=== PATIENT | male | born 1940 | race Caucasian/White ===

== ENCOUNTER 2016-11-08 10:05 | Day surgery (SDC) | payer BC ==
[~2016-11-08 10:05] MED LIST: ACETAMINOPHEN 1000MG/100 ML PREMIX IV ONE
[2016-11-08 10:36] LABS: BASO % 0.4 % (0-6); EOS % 1.3 % (0-6); GRAN % 60.2 % (47-80); HEMOGLOBIN 13.2 gm/dl (14.0-18.0); LYMPH % 28.5 % (16-45); MEAN CELL VOLUME 97.6 fl (81-97); MEAN PLATELET VOLUME 9.4 fl (7.4-10.4); MONO % 9.6 % (0-9); PLATELET COUNT 251 K/uL (130-400); RED CELL DISTRIBUTION WIDTH 12.2 % (11.5-14.5); WHITE BLOOD COUNT W/O DIFF 5.2 K/uL (4.2-12.2)
[2016-11-08 10:39] LABS: MEAN CORPUSCULAR HEMOGLOBIN 32.1 pg (27-33)
[2016-11-08] MEDS ORDERED: EPINEPHRINE 1 MG/ML AMPUL SQ ONE (14:00)
[2016-11-08] MEDS ORDERED: EPHEDRINE SULFATE 50 MG/ML ML IV ONE (14:57)
[2016-11-08] MEDS ORDERED: LIDOCAINE 2% MDV (20MG/ML) 20ML VIAL IV ONE (14:57)
[2016-11-08] MEDS ORDERED: PROPOFOL 10 MG/ML VIAL IV ONE (14:57)
[2016-11-08] MEDS ORDERED: ROPIVACAINE HCL (NAROPIN) /PF 5MG/ML 20ML VIAL IV ONE (14:57)
[2016-11-08] MEDS ORDERED: SEVOFLURANE 250 ML INH ONE (14:57)
[2016-11-08] MEDS ORDERED: GLYCOPYRROLATE 0.2 MG/ML ML IV ONE (14:57)
[2016-11-08] MEDS ORDERED: FENTANYL PF 100MCG/2ML VIAL IV ONE (14:57)
[2016-11-08] MEDS ORDERED: MIDAZOLAM HCL 2MG/2ML VIAL IV ONE (14:57)
[2016-11-08] MEDS ORDERED: ROCURONIUM BROMIDE 50MG/5ML VIAL IV ONE (14:57)
[2016-11-08] MEDS ORDERED: ONDANSETRON HCL IV 4 MG/2 ML VIAL IVP ONE (14:57)
[2016-11-08] MEDS ORDERED: NEOSTIGMINE 1 MG/1 ML,10ML VIAL IV ONE (14:57)
[2016-11-08] MEDS ORDERED: SUCCINYLCHOLINE 20 MG/ML 10ML IVP ONE (14:57)
[2016-11-08] MEDS ORDERED: KETOROLAC 30 MG/ML VIAL IVP ONE (14:57)
--- NOTE | 2016-11-12 10:18 | Operative Note ---
DATE OF SURGERY: 11/08/2016 REFERRING PHYSICIAN: Harley Gray D.O. PREOPERATIVE DIAGNOSES: 1. Tear of the right rotator cuff. 2. Impingement syndrome, right shoulder. 3. Adhesive capsulitis, right shoulder. POSTOPERATIVE DIAGNOSES: 1. Tear of the right rotator cuff. 2. Impingement syndrome, right shoulder. 3. Osteoarthritis, right shoulder. 4. Adhesive capsulitis, right shoulder. OPERATIVE PROCEDURES: 1. Arthroscopic repair, right rotator cuff. 2. Arthroscopic subacromial decompression and acromioplasty, right shoulder. 3. Arthroscopic chondroplasty of the humeral head, right shoulder. 4. Manipulation under anesthesia, right shoulder. Surgeon: Napoleon Canales D.O. DESCRIPTION: This 76-year-old male was taken to the Operating Room and placed in the supine position on the operating room table where general anesthesia was induced. The patient's right shoulder was then taken through a range of motion and found to be markedly restricted especially in abduction at about 50 to 60 degrees and forward flexion to approximately 120 degrees. Then, under gentle manipulation, the shoulder was abducted to 120 degrees, forward flexion to 180 degrees, external rotation to 90 degrees and internal rotation to 90 degrees and extension to 45 degrees in full crossover. Disruption of cicatrix could be felt especially with abduction and crossover (adduction) and the shoulder was stable. The patient was then placed in the beach chair position with all bony prominences well-padded and head well-secured. The right shoulder prepped with Hibiclens and draped in the usual sterile fashion. A posterior portal was established in the right shoulder and initial evaluation of the glenohumeral joint revealed significant osteoarthritis of the humeral head with significant grade 4 lesions being noted, some large loose flaps of articular cartilage also being evident. There was absence of biceps tendon. The patient had marked disruption of the supraspinatus and infraspinatus tendons. We then debrided the articular cartilage of the humeral head and debrided the undersurface of the rotator cuff for better visualization through an anterior portal. We then placed the scope in the subacromial space and thorough subacromial decompression and acromioplasty were performed. Tear in the rotator cuff was easily identified with the supraspinatus being mostly just shredded and a large "V" type tear was evident and this needed to be repaired [id number]. This would not come down to the anatomic footprint for the insertion of the supraspinatus tendon. We then debrided the unhealthy portion of the tendon as much as possible to get to reasonable quality tissue. The patient's rotator cuff I would say would be of moderate quality. We then repaired the rotator cuff [id number] medially with 2 simple stitches with #2 FiberWire. Subsequently we additionally repaired it more distally with [place] Tape passed through a #5.5 SwiveLock anchor and then these stitches were again passed through the anterior portion of this tear and this was a modification of a SpeedBridge technique using the [place] Tape to place posteriorly at the margin of the tear and those sutures were passed posteriorly through the posterior leaflet. We then took a single limb of each one of these sutures and passed it through a third SwiveLock anchor, again 5.5 mm, and placed it inferior to the anterior anchor and similarly another 5.5 mm SwiveLock was placed inferior to the posterior anchor thus completing the SpeedBridge technique as the modification as described above. This did bring the cuff down to the anatomic footprint which had been debrided. The wound was irrigated and suctioned. The portals were closed with 4-0 nylon suture. Sterile dressings were applied. UltraSling applied and the patient taken to the Recovery Room in satisfactory condition. GROSS PATHOLOGY: This patient demonstrated a massive tear of the supraspinatus with moderate quality tendon remaining. Osteoarthritis of the humeral head with a grade 4 lesion being identified was noted, also had adhesive capsulitis as described. CC: Susy Mcclure
== END 2016-11-08 15:10 | disposition home or self-care (01) ==
LOC: SUR 10:05
PROVIDERS: ATTEND Orthopaedic Surgery
DX: M75.121 Complete rotator cuff tear or rupture of right shoulder, not specified as traumatic (principal); M75.41 Impingement syndrome of right shoulder; M75.01 Adhesive capsulitis of right shoulder; M19.011 Primary osteoarthritis, right shoulder; E78.00 Pure hypercholesterolemia, unspecified; J45.909 Unspecified asthma, uncomplicated
CPT/HCPCS: 29827; 29826; 29823; 01630; 85025; 64415; J1885; J2405; J3010; J2795; 01992; J0171; J0330; J2710